=== PATIENT | male | born 1980 | race Caucasian/White ===

== ENCOUNTER 2019-08-22 00:46 | Emergency (ER) | payer SELFPAY ==
[~2019-08-22] VITALS: Ht 175.3 cm; Wt 83.9 kg
--- NOTE | 2019-08-22 00:46 | NUR ---
PT BIB [facility], PREBOOK. TAKEN TO CHAIR C
[2019-08-22 00:53] VITALS: BP 154/77
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
--- NOTE | 2019-08-22 01:00 | NUR ---
DR ASENCIO EXAMINING PT.
[2019-08-22 01:07] VITALS: BP 154/77
--- NOTE | 2019-08-22 01:08 | NUR ---
Patient discharged with v/s stable. Written and verbal after care instructions given and explained. Patient verbalized understanding. Ambulatory with steady gait, in custody escorted by P. All questions addressed prior to discharge. Advised to follow up with PMD.
== END 2019-08-22 01:08 ==
LOC: MED 00:46
DX: Z02.89 Encounter for other administrative examinations (principal); Z98.890 Other specified postprocedural states
CPT/HCPCS: 99283